=== PATIENT | female | born 1965 | race Caucasian/White ===

== ENCOUNTER 2019-05-02 08:41 | Outpatient (CLI) | payer BC, SELFPAY ==
--- NOTE | 2019-05-02 | ECHO_ITS ---
Patient Info Name: Carolin Ramires Age: 53 years : 1965 Gender: Female Ht: 64 in Wt: 110 lbs BSA: 1.49 m2 HR: 70 bpm BP: 137 / 74 mmHg Heart Rhythm: Sinus Rhythm Technical Quality: Good Exam Date: 05/02/2019 9:42 AM Exam Location: [facility] Patient Status: Outpatient Admit Date: 05/02/2019 Staff Ordering Physician: Mar Roman DO Leak Gang Supervisor: Bart Whitney RDCS, RT Attending Provider: Mar Roman DO Referring Physician: Jessie GOODMAN; Exam Type: CA echo doppler color flow Study Info Indications I40.9 - Acute myocarditis, unspecified Complete two-dimensional, color flow and Doppler transthoracic echocardiogram is performed. Summary 1. Normal left ventricular size and thickness. Visually there appeared to be mild reduction of left ventricular function with an ejection fraction of 45-50%. However the measured ejection fraction was 61% and the global longitudinal strain was -20% which is normal, suggesting normal systolic function also.. Normal diastolic function with no focal wall motion abnormalities. 2. Mild mitral valve prolapse involving the anterior leaflet with trivial mitral regurgitation. 3. Normal sinus rhythm. Left Ventricle Left ventricular chamber dimension is normal. Left ventricular systolic function is mildly reduced, estimated at 45-50%. There is no increased left ventricular wall thickness. Left ventricular septal wall motion is normal. The left ventricular diastolic function is normal. Global longitudinal strain is normal at 20 %. Right Ventricle Right ventricular chamber dimension is normal. Right ventricular systolic function is normal. Left Atria Left atrial chamber dimension is normal. Right Atria Right atrial chamber dimension is normal. Aortic Valve The aortic valve is trileaflet. There is no aortic valve sclerosis. There is no aortic valve stenosis. There is no aortic valve regurgitation. Pulmonic Valve The pulmonic valve is normal. There is no pulmonic valve stenosis. There is trace pulmonic regurgitation. Mitral Valve The mitral valve has thickened leaflets and anterior prolapse. There is no mitral valve stenosis. There is trace mitral valve regurgitation. Tricuspid Valve The tricuspid valve leaflets are normal. There is no significant tricuspid valve stenosis. There is no tricuspid valve regurgitation. No pulmonary hypertension, estimated pulmonary arterial systolic pressure is Empty. Pericardium/Pleural The pericardium appears normal. There is no pericardial effusion. Inferior Vena Cava Normal inferior vena cava with >50% collapse upon inspiration consistent with Empty right atrial pressure, Empty. Aorta The aortic root size at the sinus of Valsalva is normal. The prox ascending aorta size is normal. Left Ventricular Outflow Tract Name Value Normal LVOT 2D LVOT Diameter 2.1 cm LVOT Doppler LVOT Peak Gradient 3 mmHg LVOT Mean Gradient 1 mmHg LVOT VTI 18 cm LVOT VTI/AV VTI Ratio 0.8
--- NOTE | 2019-05-16 14:32 | WPDPFTINT ---
PFT Interpretation PFT Interpretation: DOS: 05/02/2019 REQUESTING: Mar Roman DO REASON FOR TESTING: Myositis PULMONARY FUNCTION TESTS Results are reproducible. Spirometry: FEV1 100%, FVC 103%, normal FEV1%. Mildly decreased NJO14-96% at 63% with a 26% increased after bronchodilator. Lung volumes: Normal total lung capacity 108%. Normal residual volume. Minimal increase in RV/TLC ratio 38%. Airway resistance 141%, minimally increased. Diffusion: DLCO normal 113%. Flow volume loop: Normal. IMPRESSION: Normal spirometry, lung volumes, and diffusion. There is no evidence of interstitial lung disease. Itzel Holman MD
== END 2019-05-02 08:42 | disposition home or self-care (01) ==
PROVIDERS: PCP Family Medicine Adolescent Medicine; Visit Provider Internal Medicine
DX: M60.9 Myositis, unspecified (principal); Z51.81 Encounter for therapeutic drug level monitoring
CPT/HCPCS: 93306; 94060; 94726; 94729

== ENCOUNTER 2024-12-08 08:21 | Emergency (ER) | payer OTHER, SELFPAY ==
--- OUTSIDE RECORDS SUMMARY | 2024-12-08 08:23 | XMS_ITS | Encounter Summary ---
Author Organization [facility] Address [address] [place] [address] Care Team Providers Care Armature And Rotor Winder Name Role Phone Jim Romero MD Primary Care Provider [phone] Encounter Details Date Type Department Care Team (Late st Contact Info) Description 10/31/2004 Outpatient Historical [facility] Maternal and Ground Floor [address] [facility] [address] [place] [address] Fadi Mendoza MD [address] [facility] [address] [place] [address] Social History Tobacco Use Types Packs/Day Years Used Date Smoking Tobacco: Never Assessed Comments Unknown Sex and Gender Information Value Date Recorded Sex Assigned at Not on file Legal Sex Female 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
--- OUTSIDE RECORDS SUMMARY | 2024-12-08 08:23 | XMS_ITS | Encounter Summary ---
Author Organization [facility] Address [address] [place] [address] Care Team Providers Care Copyist Name Role Phone Jim Romero MD Primary Care Provider [phone] Encounter Details Date Type Department Care Team (Latest Contact Info) Description 09/30/2004 [facility] Fadi Mendoza MD [address] [facility] [address] [place] [address] ELDER MULTIGRAVID-ANTEPART UM (Primary Dx) Social History Tobacco Use Types Packs/Day Years Used Date Smoking Tobacco: Never Assessed Comments Unknown Sex and Gender Information Value Date Recorded Sex Assigned at Not on file Legal Sex Female 3:07 AM RN IMAGING Gender Identity Not on file Sexual Orientation Not on file documented as of this encounter Plan of Treatment Not on file documented as of this encounter Visit Diagnoses Diagnosis Elderly multigravida with antepartum condition or complication- Primary documented in this encounter Care Teams Copyist Relationship Specialty Start Date End Date Jim Romero MD [address] [facility] [address] [address] PCP - General 12/25/02 documented as of this encounter
--- OUTSIDE RECORDS SUMMARY | 2024-12-08 08:23 | XMS_ITS | Encounter Summary ---
Author Organization [facility] Address 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
--- OUTSIDE RECORDS SUMMARY | 2024-12-08 08:23 | XMS_ITS | Encounter Summary ---
Author Organization [facility] Address [address] [place] [address] Care Team Providers Care Network Security Administrator Name Role Phone Jim Romero MD Primary Care Provider [phone] Encounter Details Date Type Department Care Team (Latest Contact Info) Description 12/25/2002 Outpatient Historical [facility] IN A BED Binu, Kraig Gillette MD [address] [address] Jim Romero MD [address] [address] THRT LEONEL LABOR-ANTEPART (Primary Dx) Social History Tobacco Use Types Packs/Day Years Used Date Smoking Tobacco: Never Assessed Comments Unknown Sex and Gender Information Value Date Recorded Sex Assigned at Not on file Legal Sex Female 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
--- OUTSIDE RECORDS SUMMARY | 2024-12-08 08:23 | XMS_ITS | Clinical Summary ---
Author Organization [facility] Address [address] [place] [address] Care Team Providers Care Soaker Helper Name Role Phone Fred Roger MD Primary Care Provider + Source Comments [facility] Affiliates and Associated Physician Practices is amultiple site organization consisting of ambulatory clinics and hospital sitesin [place] and [place]. This disclosure is being madepursuant to the Care Everywhere program and may not contain all information available regarding this patient. Last updated 17.[facility] Allergies No known active allergies Medications * Be aware that medications may not be up to date on this document. Alwaysverify current medications with the patient. Collagen Hydrolysate POWD Use 11 g once daily Active Caprylic Acid Use 600 mg once daily Active [facility] OMEGA-3 KRILL OIL 500 MG Take 1 capsule by mouth once daily Active Magnesium 100 MG Take 1 tablet by mouth once daily Active Coenzyme Q10 (COQ10) 50 MG Take 1 capsule by mouth once daily Active COD LIVER OIL/VITAMINS A & D PO Take 1 tablet by mouth every Monday, Monday & Monday Active ascorbic acid (VITAMIN C) 500 MG tablet Take 1 (one) tablet by mouth once daily Active Cranberry 300 MG Take 1 tablet by mouth once daily Active Turmeric Curcumin 500 MG Take 1 tablet by mouth once daily Active Probiotic Product (PROBIOTIC ACIDOPHILUS BEADS PO) Take 1 capsule by mouth 3 times daily Active Vitamin D3 (CHOLECALCIFEROL ) 50 MCG (1999 UT) capsule Take 1 (one) capsule by mouth every Monday, Monday & Monday Active niacinamide 500 MG tablet Take 1 (one) tablet by mouth once daily Active Active Problems No known active problems Family History Medical History Relation Name Comments Psoriasis Daughter Relation Name Status Comments Daughter Social History Tobacco Use Types Packs/Day Years Used Date Smoking Tobacco: Never Smokeless Tobacco: Never Tobacco Cessation:Counseling Given: Not Answered Alcohol Use Standard Drinks/Week Comments Not Currently 0 (1 standard drink = 0.6 oz pur e alcohol) rarely PHQ-2 Answer Date Recorded Patient Health Questionnaire-2 Score 0 06/12/2023 Comments No Sex and Gender Information Value Date Recorded Sex Assigned at Not on file Legal Sex Female 6:14 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 Gender Identity Not on file Sexual Orientation Not on file Last Filed Vital Signs Vital Sign Reading Time Taken Comments Blood Pressure 113/74 06/12/2023 12:56 PM CDT Pulse 72 06/12/2023 12:56 PM CDT Temperature 36.8 C (98.2 F) 06/12/2023 12:56 PM CDT Respiratory Rate 16 06/14/2021 12:49 PM CDT Oxygen Saturation 99% 06/14/2021 12:49 PM CDT Inhaled Oxygen Concentration - - Weight 61.2 kg (135 lb) 06/12/2023 12:56 PM CDT Height 162.6 cm (5' 4) 06/12/2023 12:56 PM CDT Body Mass Index 23.17 06/12/2023 12:56 PM CDT Plan of Treatment Health Maintenance Due Date Last Done Comments COLOGUARD (AGES 45-75) - COL ON CA SCREENING 1965 COLON MONITORING 1965 COLONOSCOPY - COLON CA SCREENING 1965 CT COLONOGRAPHY - COLON CA SCREENING 1965 Colorectal Cancer Screening 1965 FIT - COLON CA SCREENING 1965 FLEX SIG - COLON CA SCREENING 1965 LIPID TESTING 1965 MAMMOGRAM 1965 HIV SCREENING 10/14/1978 HEPATITIS C SCREENING 10/10/1981 DTAP/TDAP/TD VACCINES (1 - Tdap) 10/14/1982 PAP SMEAR 10/14/1984 PNEUMOCOCCAL VACCINE 50+ (1 of 1 - PCV) 10/14/2013 ZOSTER VACCINE (1 of 2) 10/14/2013 DEPRESSION SCREENING 02/21/2024 06/12/2023 COVID-19 VACCINE (2023-2 5 season) 2024 INFLUENZA VACCINE (#1) 2024 Respiratory Syncytial Virus (RSV) Vaccine Pt: or over 60 yrs (1 - 1-dose 75+ series) 10/14/2038 HEPATITIS B VACCINE Aged Out No longe r eligible based on patient's age to complete this topic HIB VACCINE Aged Out No longer eligi ble based on patient's age to complete this topic HPV VACCINE Aged Out No longer eligi ble based on patient's age to complete this topic MENINGOCOCCAL (Group B) VACC INE SHARED DECISION-MAKING Aged Out No longer eligibl e based on patient's age to complete this topic MENINGOCOCCAL GROUPS A/C/Y/W VACCINE Aged Out No longer eligible b ased on patient's age to complete this topic Insurance [employer] Care Teams Soaker Helper Relationship Specialty Start Date End Date Fred Roger MD [address] [address] [facility] - General 12/20/18
--- OUTSIDE RECORDS SUMMARY | 2024-12-08 08:23 | XMS_ITS | Clinical Summary ---
Author Organization [facility] Address [address] [facility] Attn: Epic Prelude ADT NANCY CALHOUN [address] Care Team Providers Care Public Health Technologist Name Role Phone Jim Romero MD Primary Care Provider [phone] Social History Tobacco Use Types Packs/Day Years Used Date Smoking Tobacco: Never Assessed Comments Unknown Sex and Gender Information Value Date Recorded Sex Assigned at Not on file Legal Sex Female 3:07 AM CLINICAL BIOSTATISTICS DIRECTOR Gender Identity Not on file Sexual Orientation Not on file Plan of Treatment Health Maintenance Due Date Last Done Comments DTAP/TDAP/TD VACCINES (1 - Tdap) 10/14/1982 HPV/Cotest (21-29) 10/14/1984 CERVICAL CANCER SCREENING 10/14/1993 HPV/Cotest (30-65) 10/14/1993 PAP SMEAR 10/14/1993 BREAST CANCER SCREENING 2003 COLORECTAL SCREENING 10/14/2008 Colorectal Cancer Screening 10/14/2008 FIT-DNA Q 3 years 10/14/2008 FIT/FOBT Q 1 year 10/14/2008 Flex Sig/CT Colonography Q 5 years 10/14/2008 ZOSTER VACCINE (1 of 2) 10/14/2013 INFLUENZA VACCINE (#1) 2024 RSV VACCINE (60+ or ) (1 - 1-dose 75+ series) 10/14/2038 Care Teams Public Health Technologist Relationship Specialty Start Date End Date Jim Romero MD [address] [place], [place] [address] [address] PCP - General 12/25/02
--- OUTSIDE RECORDS SUMMARY | 2024-12-08 08:23 | XMS_ITS | Encounter Summary ---
Author Organization [facility] Address [address] [place] [address] Care Team Providers Care Chlorinator Operator Name Role Phone Jim Romero MD Primary Care Provider [phone] Encounter Details Date Type Department Care Team (Late st Contact Info) Description 09/30/2004 Outpatient Historical [facility] Maternal and Ground Floor [address] [facility] [address] [place] [address] Felecia Shaver MD [address] [place] [address] Social History Tobacco Use Types Packs/Day Years Used Date Smoking Tobacco: Never Assessed Comments Unknown Sex and Gender Information Value Date Recorded Sex Assigned at Not on file Legal Sex Female 3:07 AM PRESSER AND SHAPER KNITTED GOODS Gender Identity Not on file Sexual Orientation Not on file documented as of this encounter Plan of Treatment Not on file documented as of this encounter Visit Diagnoses Not on filedocumented in this encounter Care Teams Chlorinator Operator Relationship Specialty Start Date End Date Jim Romero MD [address] [facility] [address] [address] PCP - General 12/25/02 documented as of this encounter
--- OUTSIDE RECORDS SUMMARY | 2024-12-08 08:23 | XMS_ITS | Encounter Summary ---
Author Organization [facility] Address [address] [facility] [place] [address] Care Team Providers Care Java Architect Name Role Phone Fred Roger MD Primary Care Provider + Reason for Visit * Reason Onset Date Comments MEDICATION REFILL 07/28/2020 Encounter Details Date Type Department Care Team (Late st Contact Info) Description 07/28/2020 Refill [facility] [address] [place] [address] Mar Roman, DO [address] [facility] [address] [place] [address] MEDICATION REFILL Social History Tobacco Use Types Packs/Day Years Used Date Smoking Tobacco: Never Smokeless Tobacco: Never Alcohol Use Standard Drinks/Week Comments Yes 0 (1 standard drink = 0.6 oz pur e alcohol) rarely Comments Unknown Sex and Gender Information Value Date Recorded Sex Assigned at Not on file Legal Sex Female 6:14 AM 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 hydroxychloroquine (PLAQUENIL) 200 MG tablet 90 tablet 3 Sig: Take 1 (one) tablet by mouth once daily documented in this encounter Plan of Treatment Not on file documented as of this encounter Visit Diagnoses Not on filedocumented in this encounter Care Teams Java Architect Relationship Specialty Start Date End Date Fred Roger MD [address] [address] PCP - General 12/20/18 documented as of this encounter
--- OUTSIDE RECORDS SUMMARY | 2024-12-08 08:23 | XMS_ITS | Encounter Summary ---
Author Organization [facility] Address [address] [place] [address] Care Team Providers Care Parachute Marker Name Role Phone Jim Romero MD Primary Care Provider [phone] Encounter Details Date Type Department Care Team (Late st Contact Info) Description 11/29/2004 Outpatient Historical [facility] Maternal and Ground Floor [address] [facility] [address] [place] [address] Fadi Mendoza MD [address] [address] [facility] [address] [place] [address] Social History Tobacco Use Types Packs/Day Years Used Date Smoking Tobacco: Never Assessed Comments Unknown Sex and Gender Information Value Date Recorded Sex Assigned at Not on file Legal Sex Female 3:07 AM PSYCHODRAMATIST Gender Identity Not on file Sexual Orientation Not on file documented as of this encounter Plan of Treatment Not on file documented as of this encounter Visit Diagnoses Not on filedocumented in this encounter Care Teams Parachute Marker Relationship Specialty Start Date End Date Jim Romero MD [address] [facility] [address] [address] PCP - General 12/25/02 documented as of this encounter
--- OUTSIDE RECORDS SUMMARY | 2024-12-08 08:23 | XMS_ITS | Encounter Summary ---
Author Organization [facility] Address [address] [facility] [place] [address] Care Team Providers Care Public Health Registrar Name Role Phone Fred Roger MD Primary Care Provider + Reason for Visit * Reason Onset Date Comments MEDICATION REFILL 07/01/2020 Encounter Details Date Type Department Care Team (Late st Contact Info) Description 07/01/2020 Refill [facility] [address] [place] [address] Mar Roman, DO [address] [facility] [address] [place] [address] MEDICATION REFILL Social History Tobacco Use Types Packs/Day Years Used Date Smoking Tobacco: Never Smokeless Tobacco: Never Alcohol Use Standard Drinks/Week Comments Yes 0 (1 standard drink = 0.6 oz pur e alcohol) rarely Comments Unknown Sex and Gender Information Value Date Recorded Sex Assigned at Not on file Legal Sex Female 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 Pt is aware Allergies: No Known Allergies Pended Medication Order: Requested Prescriptions Pending Prescriptions Disp Refills ??? hydroxychloroquine (PLAQUENIL) 200 MG tablet 90 tablet 3 Sig: Take 1 (one) tablet by mouth once daily documented in this encounter Plan of Treatment Not on file documented as of this encounter Visit Diagnoses Not on filedocumented in this encounter Care Teams Public Health Registrar Relationship Specialty Start Date End Date Fred Roger MD [address] [address] PCP - General 12/20/18 documented as of this encounter
--- OUTSIDE RECORDS SUMMARY | 2024-12-08 08:24 | XMS_ITS | Encounter Summary ---
Author Organization [facility] Address [address] [place] [address] Care Team Providers Care Highway Maintenance Crew Worker Name Role Phone Jim Romero MD Primary Care Provider [phone] Encounter Details Date Type Department Care Team (Latest Contact Info) Description 11/29/2004 Outpatient Historical [facility] Fadi Mendoza MD [address] [facility] [address] [place] [address] PREG W HISTORY OF PRE-TERM LABOR (Primary Dx) Social History Tobacco Use Types Packs/Day Years Used Date Smoking Tobacco: Never Assessed Comments Unknown Sex and Gender Information Value Date Recorded Sex Assigned at Not on file Legal Sex Female 3:07 AM SENIOR CONTROLS TECHNICIAN Gender Identity Not on file Sexual Orientation Not on file documented as of this encounter Plan of Treatment Not on file documented as of this encounter Visit Diagnoses Diagnosis with history of pre-term labor- Primary documented in this encounter Care Teams Highway Maintenance Crew Worker Relationship Specialty Start Date End Date Jim Romero MD [address] [facility] [address] [address] PCP - General 12/25/02 documented as of this encounter
--- OUTSIDE RECORDS SUMMARY | 2024-12-08 08:24 | XMS_ITS | Clinical Summary ---
Author Organization [facility] [place] [address] Address [address] [place] [address] Care Team Providers Care Energy Director Name Role Phone Fred Roger MD Primary Care Prov ider Allergies No known active allergies Encounters Date Type Department Care Team Description 11/15/2024 7:51 AM CDT - 11/15/2024 11:59 PM CDT Hospital Encounter [address] [address] Oskar Keating MD Abnormal mammogram Discharge Disposition: Discharge to home or self care 11/08/2024 2:28 PM CDT - 11/08/2024 11:59 PM CDT Hospital Encounter [address] [address] Mass of right breast, unspecified quadrant Discharge Disposition: Discharge to home or self care 11/08/2024 2:15 PM CDT - 11/08/2024 11:59 PM CDT Hospital Encounter [facility] Office [address] [place] [address] Mass of right breast, unspecified quadrant Discharge Disposition: Discharge to home or self care from Last 3 Months Surgical History Surgery Date Site/Laterality Comments BREAST BIOPSY 11/15/2024 Right Family History Medical History Relation Name Comments Breast cancer Maternal Grandmother Breast cancer Mother Relation Name Status Comments Maternal Grandmother Mother Social History Tobacco Use Types Packs/Day Years Used Date Smoking Tobacco: Never Assessed Comments No Sex and Gender Information Value Date Recorded Sex Assigned at Not on file 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 Gender Identity Not on file Sexual Orientation Not on file Obstetrics History Para Term AB IAB SAB Ectopic Multiple Livin g Live Births 11 10 Date Outcome GA Total Labor Labor/2nd/3rd Weight Sex Type Anes PTL [place] A1 A5 Name Clin Plan of Treatment Health Maintenance Due Date Last Done Comments Cervical Cancer Screening 1965 Colon Cancer Screening-Colonoscopy 1965 Depression Screening 1965 Hepatitis C Screening 1965 DTaP/Tdap/Td Vaccine (1 - Tdap) 10/14/1974 Hepatitis B Screening 10/14/1981 Regular Well Visit/Exam -10/14/1981 Zoster Vaccine (1 of 2) 10/14/2013 Influenza Vaccine (#1) 2024 Breast Cancer Screening-Mammogram 11/08/2025 025 Pneumococcal vaccine <65 Aged Out No longer eligible based on patient's age to complete this topic Medical Devices Implanted Type Area Power Plant Electrician Device Identifier Shelf Expiration Date Model / Serial / Lot Hologic Limited Partnership Marker Biospy Site Top Hat Shape Senomark [id number] - [id number] Implanted:Qty: 1 on 11/15/2024 by Oskar Keating MD at [facility] Right: Breast Hologic Limited Partnership [id number] 05/01/2025 SMARK-SLADE ERO-2S / / [id number] Hologic Limited Partnership Marker Biospy Site Mini Cork Shape Securmark Smark-Celero - [id number] Implanted:Qty: 1 on 11/15/2024 by Oskar Keating MD at [facility] Right: Breast Hologic Limited Partnership [id number] 06/13/2025 SMARK-SLADE ERO / / [id number] Procedures Procedure Name Priority Date/Time Associated Diagnosis Comments US GUIDED BREAST BIOPSY RIGHT Schedule Routine, Read Routine (OP Routine) 11/15/2024 8:52 AM CDT Abnormal mammogram SURGICAL PATHOLOGY Routine 11/15/2024 8: 30 AM CDT Abnormal mammogram US BREAST RIGHT LIMITED Schedule Routine, Read Routine (OP Routine) 11/08/2024 3:34 PM CDT Mass of right breast, unspecified quadrant DIAGNOSTIC MAMMOGRAM BILATERAL W SY Schedule Routine, Read Routine (OP Routine) 11/08/2024 2:56 PM CDT Mass of right breast, unspecified quadrant from Last 3 Months Results * US Guided Breast Biopsy Right (11/15/2024 8:52 AM CDT) Anatomical Region Laterality Modality Breast Right Ultrasound 11/25/2024 7:07 PM CDT Impressions 11/25/2024 7:07 PM CDT Status post core biopsy/biopsies by Dr. Keating of the right breast mass(es) of interest utilizing sonographic guidance. Electronically signed by: Meghan Walton M.D. Narrative 11/25/2024 7:07 PM CDT EXAMINATION: RIGHT BREAST CORE BIOPSY X 2 UTILIZING SONOGRAPHIC GUIDANCE, WITH PLACEMENT OF A BIOPSY MARKER AND POST-PROCEDURE FULL FIELD DIGITAL RIGHT MAMMOGRAM, INCLUDING DIGITAL BREAST TOMOSYNTHESIS HISTORY: Right breast mass(es). Ultrasound guided tissue sampling is requested to evaluate for malignancy. COMPARISON: November 08 BREAST PARENCHYMAL COMPOSITION: The breasts are heterogeneously dense, which may obscure small masses. PROCEDURE AND FINDINGS: No radiologist was present for or involved in the procedure. On the images submitted, A biopsy needle is seen to be advanced to the structure/area in question at 9:00, 5 cm from the nipple, utilizing sonographic guidance. The obtaining of core biopsy samples was imaged. A top jig builder helper was placed. Following this, the entire procedure was repeated for the structure at 9:00 in the retroareolar region. A cylinder clip was placed at this site. A post-procedural mammogram, including digital breast tomosynthesis, demonstrates that the biopsy markers are in the expected positions. Oskar Keating MD IM MAMMO PROCEDURES Final Res ult * Surgical pathology (11/15/2024 8:30 AM CDT) Tissue (Breast biopsy, needle core) 11/15/2024 8:30 AM CDT Comment:Ultrasound guided ri ght breast biopsy Tissue specimen (specimen) (Breast biopsy, needle core) 11/15/2024 8:38 AM CDT Comment:Ultrasound guided ri ght breast biopsy Narrative PATHOLOGY TEMP LLB FOR ASP - 11/18/2024 11:27 AM CDT [facility] Department of Pathology [address] [place] [address] Note to Patients: This report may contain a detailed description of human tissue sent by a health care provider to the laboratory for pathologic evaluation. The content of this report is essential for diagnosis and may provide important critical findings. This information may be unfamiliar to patients to review without a medical professional present. It is advised that the patient review this report in the presence of a health care provider who can answer questions and explain the details. Final Report Patient Name: HAWA JACQUES : 1965 (Age: 59) Gender: F Address: [address] [place] [address] Hospital #: [id number] Service: DEFAULT Location: Patient Type: [facility]CILL[facility] Taken: 11/15/2024 Received: 11/15/2024 Accessioned: 11/15/2024 Reported: 11/18/2024 Physician(s): Rios Reyes M.D. Diagnosis: A. Right breast mass at 9:00 5 centimeters from nipple, ultrasound-guided needle core biopsy - Dense mixed predominantly chronic inflammation with reactive fibrosis - Negative for atypia or malignancy B. Right breast mass at 9:00, retroareolar, ultrasound guided needle core biopsy - Dense mixed predominantly chronic inflammation with reactive fibrosis - Negative for atypia or malignancy Latonia Hickman M.D. Report Electronically Reviewed and Signed Out By Latonia Hickman M.D. 11/18/2024 11:27:25 Specimen(s) Received: A: Right breast mass 9:00 5 centimeters from nipple B: Right breast mass 9:00 retroareolar Microscopic Description: The findings are most suggestive of a ruptured cyst but could also be indicative of periductal mastitis. Clinical History: The patient is a 59-year-old woman with an abnormal mammogram, and right breast masses at 9 o'clock. Operative procedure: Ultrasound-guided right breast needle core biopsies. Gross Description Received in two formalin jars labeled with the patient's identifiers. A. Labeled right breast mass 9 o'clock 5 cm from nipple are approximately seven falk-yellow, cylindrical pieces of fibrofatty tissue, each 0.2 cm in diameter, with lengths ranging from 1.0-1.9 cm. Labeled A1. Jar 0. Total fixation time= 58 hours. Cold ischemic time = 6 minutes. B. Labeled right breast mass 9 o'clock retroareolar are approximately six yellow-white, cylindrical pieces of fibrofatty tissue, each 0.2 cm in diameter, with lengths ranging from 0.8-2.5 cm. Labeled B1. Jar 0. Total fixation time= 58 hours. Cold ischemic time = 4 minutes. jjb/11/15/2024 13:04 YANELIS Pack, PA (ASCP) Microscopic slide review and interpretation for this case was performed at [facility], Department of Surgical Pathology, [address] [facility], [id number], [place] [address] CLIA # [id number] Oskar Keating MD LAB PATHOLOGY ORDERABLES Final Result PATHOLOGY TEMP LLB FOR ASP * US Breast Right Limited (11/08/2024 3:34 PM CDT) Anatomical Region Laterality Modality Breast Right Ultrasound 11/08/2024 6:05 PM CDT Impressions 11/08/2024 6:05 PM CDT Suspicious masses on the right for which ultrasound-guided core biopsy is recommended. OVERALL FINAL ASSESSMENT: BI-RADS 5-Highly suspicious for malignancy. Appropriate action should be taken. Electronically signed by: Meghan Walton M.D. Narrative 11/08/2024 6:05 PM CDT EXAMINATION: BILATERAL DIGITAL DIAGNOSTIC MAMMOGRAM AND DIGITAL BREAST TOMOSYNTHESIS; RIGHT BREAST SONOGRAM HISTORY: 2 palpable abnormalities on the right COMPARISON: None TECHNIQUE: Full field digital mammographic views of the bilateral breast(s) were performed, including computer aided detection (CAD) and digital breast tomosynthesis (DBT). Directed ultrasound evaluation of the right breast(s) was performed. BREAST PARENCHYMAL COMPOSITION: The breasts are heterogeneously dense, which may obscure small masses. MAMMOGRAM FINDINGS: There are no suspicious masses. No suspicious calcifications are seen. There is some minimal nipple retraction and skin retraction about the nipple on the right. There is no skin thickening seen. There are no mammographically abnormal lymph nodes seen in the axillae or elsewhere. ULTRASOUND FINDINGS: At 9:00 on the right in one area of palpable clinical concern, there is a hypoechoic, heterogeneous mass with an irregular shape. It is somewhat elongated. There is neovascularity. It measures on the order of 4.4 cm in greatest diameter. In the other palpable area in the right retroareolar region, there is a heterogeneous mass which lies partially in the skin layer just adjacent to the nipple. It shows marked neovascularity. It has angular margins. The maximum dimension is 1.7 cm. There is no axillary adenopathy. us Marie Gan NP IMG MAMMO PROCEDURES Final Res ult * (ABNORMAL) Diagnostic Mammogram Bilateral W Sy (11/08/2024 2:56 PM CDT) Anatomical Region Laterality Modality Breast Bilateral Mammography 11/08/2024 6:05 PM CDT Impressions 11/08/2024 6:05 PM CDT Suspicious masses on the right for which ultrasound-guided core biopsy is recommended. OVERALL FINAL ASSESSMENT: BI-RADS 5-Highly suspicious for malignancy. Appropriate action should be taken. Electronically signed by: Meghan Walton M.D. Narrative 11/08/2024 6:05 PM CDT EXAMINATION: BILATERAL DIGITAL DIAGNOSTIC MAMMOGRAM AND DIGITAL BREAST TOMOSYNTHESIS; RIGHT BREAST SONOGRAM HISTORY: 2 palpable abnormalities on the right COMPARISON: None TECHNIQUE: Full field digital mammographic views of the bilateral breast(s) were performed, including computer aided detection (CAD) and digital breast tomosynthesis (DBT). Directed ultrasound evaluation of the right breast(s) was performed. BREAST PARENCHYMAL COMPOSITION: The breasts are heterogeneously dense, which may obscure small masses. MAMMOGRAM FINDINGS: There are no suspicious masses. No suspicious calcifications are seen. There is some minimal nipple retraction and skin retraction about the nipple on the right. There is no skin thickening seen. There are no mammographically abnormal lymph nodes seen in the axillae or elsewhere. ULTRASOUND FINDINGS: At 9:00 on the right in one area of palpable clinical concern, there is a hypoechoic, heterogeneous mass with an irregular shape. It is somewhat elongated. There is neovascularity. It measures on the order of 4.4 cm in greatest diameter. In the other palpable area in the right retroareolar region, there is a heterogeneous mass which lies partially in the skin layer just adjacent to the nipple. It shows marked neovascularity. It has angular margins. The maximum dimension is 1.7 cm. There is no axillary adenopathy. us Marie Gan NP IMG MAMMO PROCEDURES Final Res ult from Last 3 Months [facility] DWAYNE WEBB O [employer] COVENTRY PPO Care Teams Energy Director Relationship Specialty Start Date End Date Fred Roger MD PCP - General Family Medicine 05/02/19
--- OUTSIDE RECORDS SUMMARY | 2024-12-08 08:24 | XMS_ITS | Encounter Summary ---
Author Organization [facility] Address [address] [place] [address] Care Team Providers Care Kindergarten Aide Name Role Phone Jim Romero MD Primary Care Provider [phone] Encounter Details Date Type Department Care Team (Late st Contact Info) Description 10/02/2006 Outpatient Historical [facility] Maternal and Ground Floor [address] [facility] [address] [place] [id number] Fadi Mendoza MD [address] [facility] [address] [place] [address] Social History Tobacco Use Types Packs/Day Years Used Date Smoking Tobacco: Never Assessed Comments Unknown Sex and Gender Information Value Date Recorded Sex Assigned at Not on file 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
--- OUTSIDE RECORDS SUMMARY | 2024-12-08 08:24 | XMS_ITS | Encounter Summary ---
Author Organization [employer] Address 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) Social History Tobacco Use Types Packs/Day Years Used Date Smoking Tobacco: Never Assessed Comments Unknown Sex and Gender Information Value Date Recorded Sex Assigned at Not on file 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
--- OUTSIDE RECORDS SUMMARY | 2024-12-08 08:24 | XMS_ITS | Encounter Summary ---
Author Organization [employer] Address 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
--- OUTSIDE RECORDS SUMMARY | 2024-12-08 08:24 | XMS_ITS | Encounter Summary ---
Author Organization [employer] Address 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
[2024-12-08 08:29] VITALS: BP 126/72; PULSE 81; RESP 18; TEMP 36.2; O2SAT 98
[2024-12-08 08:39] LABS: EDUAAPPEAR Clear; EDUABILI Negative (Negative); EDUABLOOD 2+ (Negative); EDUACOLOR1 Yellow; EDUAGLUCOSE Negative (Negative); EDUAKETONE Negative (Negative); EDUALEUKO 1+ (Negative); EDUANITRATE Positive (Negative); EDUAPH 5.5; EDUAPROTEIN 1+ (Negative); EDUASPGRAVITY 1.010; EDUAUROBILI 0.2
--- NOTE | 2024-12-08 08:40 | ED.FEMALEGU ---
HPI - Female Genitourinary General Chief complaint: Urogenital-Female Stated complaint: UTI Time Seen by Provider: 12/08/24 08:23 patient presents to the [facility] with complaints of burning with urination, bladder pressure, urinary frequency that began 2-3 days ago. Symptoms got significantly worse yesterday. Did take 1 of the sulfa antibiotics that were old as well as an old Pyridium which did help with symptoms. Denies fever, chills, body aches, vaginal symptoms, blood in urine, nausea, vomiting, diarrhea. Related Data Home Medications ?Medication ?Instructions ?Recorded ?Confirmed ?Last Taken ?Type Saccharomyces boulardii 250 mg 250 mg PO DAILY 05/10/21 10/30/24 Unknown History capsule (Daily Probiotic (S. boulardii)) ascorbic acid (vitamin C) 500 mg 250 mg PO DAILY 05/10/21 10/30/24 Unknown History tablet cholecalciferol (vitamin D3) 50 50 mcg PO DAILY 05/10/21 10/30/24 Unknown History mcg (2,000 unit) capsule cod liver oil 1 cap PO DAILY 05/10/21 10/30/24 Unknown History coenzyme Q10 60 mg tablet 60 mg PO DAILY 05/10/21 10/30/24 Unknown History cranberry 500 mg capsule 500 mg PO BID 05/10/21 10/30/24 Unknown History krill oil 500 mg capsule mg PO .qod 05/10/21 10/30/24 Unknown History magnesium citrate 125 mg capsule 125 mg PO DAILY 05/10/21 10/30/24 Unknown History vit A 12,500 unit-zinc 12.5 cap PO .qod 05/10/21 10/30/24 Unknown History [id number]-ljjka-bilberry-herb #261 capsule ([employer] Support) niacinamide 500 mg tablet 500 mg PO DAILY 05/10/22 10/30/24 Unknown History Allergies Allergy/AdvReac Type Severity Reaction Status Date / Time codeine AdvReac Unknown Nausea Verified 10/30/24 10:46 lactose AdvReac Unknown Diarrhea Verified 10/30/24 10:46 Review of Systems Constitutional: Constitutional: Reports as per HPI, Denies chills and Denies fatigue Eyes: Eyes: Reports no additional eye complaints ENT: Reports system reviewed and no additional complaints, except as documented Cardiovascular: Cardiovascular: Reports no additional cardiovascular complaints Respiratory: Respiratory: Reports no additional respiratory complaints Gastrointestinal: Gastrointestinal: Reports as per HPI, Denies abdominal pain, Denies diarrhea, Denies nausea and Denies vomiting Genitourinary: Genitourinary: Reports as per HPI, Denies hematuria, Reports nocturia, Reports dysuria, Denies urinary incontinence and Denies vaginal discharge Musculoskeletal: Musculoskeletal: Reports as per HPI, Denies myalgias and Denies arthralgias Integumentary/Breasts: Skin/Breast: Reports system reviewed and no additional complaints, except as docu Neurologic: Reports as per HPI and Denies weakness Psychiatric: Psychiatric: Reports no additional psychiatric complaints Endocrine: Endocrine: Reports no additional endocrine complaints Hematologic/Lymphatic: Hematologic/Lymphatic: Reports no additional hematologic/lymphatic complaints Allergic/Immunologic: Allergic/Immunologic: Reports no additional allergic/immunologic complaints PMFSH Past Medical History Medical History BMI 23.0-23.9, adult Dermatomyositis Surgical History Surgical History [place] teeth extracted Hx of tonsillectomy Family History Family History Mother Hyperlipidemia Absolute glaucoma Dementia Hypertension Grandparent Absolute glaucoma Father Sibling No problems noted. Social History Social History Smoking status: Never smoker Second hand tobacco smoke exposure: Yes Alcohol intake: current Substance use: never Substance use type: does not use Do You Feel Safe in your Home?: Yes Lack of Transportation: No Lack of Food: Never True Current Housing: I Have Housing Concerned About Future Housing: No Difficulty Paying Gas/Electric Bills: No Difficulty Paying for Meds: No Currently Unemployed: No Education: High School Diploma/GED Living arrangements: with family Occupation/Education: unemployed Gender identity (if verbalized by the patient): Female Sexual Orientation (if Verbalized by the Patient): Straight or Heterosexual Spiritual care concerns: No Agree to blood products: Yes Exam Const: General: healthy appearing and no acute distress Nutritional Appearance: well nourished Orientation/consciousness: patient oriented x3 Limitations: no limitations Resp: Effort & Inspection: normal respiratory effort Auscultation: clear to auscultation bilaterally Cardio: Rate: regular rate Rhythm: regular rhythm GI: Inspection: non-distended GI Palp: Yes Soft to palpation, No Tenderness to palpation present (GI), No Guarding due to palpation present (GI), No Rigid due to palpation and No Rebound tenderness present Auscultation: normal bowel sounds : General: Yes bladder normal to palpation and Yes no CVA tenderness Back/Spine/Pelvis: Back: no CVA tenderness Skin: General skin exam: normal color Rashes: no rashes Wounds: no wounds Neuro: General: patient oriented x3 Speech: normal speech Gait exam (Neuro): Normal gait present Psych: Appearance: grossly normal Mental Status: mental status grossly normal Affect: normal affect Attitude: cooperative Course Course Level of Care: Express Care Visit Vital Signs Vital signs: Vital Signs Temperature 97.2 F L 12/08/24 08:29 Pulse Rate 81 12/08/24 08:29 Respiratory Rate 18 12/08/24 08:29 Blood Pressure 126/72 12/08/24 08:29 Pulse Oximetry 98 12/08/24 08:29 Oxygen Delivery Room Air 12/08/24 08:29 Temperature 97.2 F L 12/08/24 08:29 Pulse Rate 81 12/08/24 08:29 Respiratory Rate 18 12/08/24 08:29 Blood Pressure 126/72 12/08/24 08:29 Pulse Oximetry 98 12/08/24 08:29 Oxygen Delivery Room Air 12/08/24 08:29 MDM - Female Genitourinary MDM Narrative Medical decision making narrative: UA positive for infection. The patient was evaluated by myself in the express care. History is obtained from patient who is an independent historian and physical exam was performed. Available medical records were reviewed at this time. Exam findings show no acute concerns or changes; patient is non-toxic appearing and is in no distress. Patient is appropriate for outpatient treatment and follow-up. I have evaluated and discussed social determinants of health with the patient that could potentially impact subsequent diagnosis and treatment plans. Differential diagnosis and treatment plan were discussed with the patient. Patient agrees with discussion and after shared medical decision making agrees with plan of care. All questions were answered to the patient's satisfaction. Differential Diagnosis Differential diagnosis: Likely urinary tract infection, cervicitis and cystitis Medical Records Attestation: I reviewed the patient's medical records. Lab Data Attestation: I reviewed the patient's lab results. Labs: Lab Results 12/08/24 Range/Units 08:36 POC Urine Color Yellow POC Urine Clarity Clear POC Urine pH 5.5 POC Ur Specif [place] 1.010 POC Urine Protein 1+ (Negative) POC Ur Glucose (UA) Negative (Negative) POC Urine Ketones Negative (Negative) POC Urine Blood 2+ (Negative) POC Urine Nitrite Positive (Negative) POC Urine Bilirubin Negative (Negative) POC Urine Urobilinogen 0.2 POC U Leukocyte Esteras 1+ (Negative) Discharge Plan Discharge Clinical Impression: Cystitis Patient Disposition: Home Condition: Stable Instructions: Antibiotic Form, Urinary Tract Infection in Women (ED) Additional Instructions: We will send a urine culture off to the lab; if the culture identifies an organism that the prescribed antibiotic will not treat, you will receive a phone call from an urgent care staff member and an appropriate antibiotic will be prescribed. -Your symptoms should begin to improve within a day of starting antibiotics. But you should finish all the antibiotic pills you get. Otherwise your infection might come back. -Also recommend: drink more fluid. It might help flush out germs, and it does no harm -Tylenol/ibuprofen as needed for pain -Follow-up with your primary care provider for urine recheck OR if your symptoms persist, change or worsen significantly before you can contact your personal physician then please, without delay, go to the emergency department for further evaluation. Patient Language: Paraguayan Prescriptions: New nitrofurantoin monohyd/m-cryst [Macrobid] 100 mg capsule 100 mg PO Q12H 5 Days Qty: 10 0RF Rx Instructions: must administer with a meal/food No Action cholecalciferol (vitamin D3) 50 mcg (2,000 unit) capsule 50 mcg PO DAILY Saccharomyces boulardii [Daily Probiotic (S. boulardii)] 250 mg capsule 250 mg PO DAILY coenzyme Q10 60 mg tablet 60 mg PO DAILY cranberry 500 mg capsule 500 mg PO BID Rx Instructions: administer with meals magnesium citrate 125 mg capsule 125 mg PO DAILY ascorbic acid (vitamin C) 500 mg tablet 250 mg PO DAILY cod liver oil Capsule 1 cap PO DAILY Lipotriad Vision Support 12,500 unit- 12.5 mg capsule PO .qod krill oil 500 mg capsule PO .qod niacinamide 500 mg tablet 500 mg PO DAILY Follow-up/Referrals: Marie Gan APRN [Primary Care Provider, [facility]] Time of Disposition: 08:42
== END 2024-12-08 08:47 | disposition home or self-care (01) ==
PROVIDERS: Emergency Provider Nurse Practitioner Family; PCP Nurse Practitioner Family
DX: N30.90 Cystitis, unspecified without hematuria (principal)
CPT/HCPCS: 81003; 87086; 99213; G0463